=== PATIENT | female | born 1990 | race Caucasian/White ===

== ENCOUNTER 2017-04-14 14:53 | Emergency (ER) | payer MEDICAID, OTHER ==
[~2017-04-14] VITALS: Ht 160 cm; Wt 61.2 kg
[~2017-04-14 14:53] MED LIST: ADVI200T PO; TRAZ50TA4 PO; ZOLO50TA PO; no home meds
[2017-04-14] MEDS ORDERED: NS 1,000 ML IV ONE (16:00)
[2017-04-14 16:20] LABS: BASO % 0.3 % (0.0-1.0); EOS # 0.1 K/mm3 (0.0-0.50); EOS % 1.1 % (0.0-3.0); LARGE UNSTAINED CELL # 0.1 K/mm3 (0.0-0.4); LARGE UNSTAINED CELL % 1.1 % (0.0-4.0); LYMPH # 1.2 K/mm3 (1.5-6.5); LYMPH % 18.1 % (24.0-44.0); MEAN CORPUSCULAR HEMOGLOBIN 30.1 pg (27.0-33.0); MEAN CORPUSCULAR HGB CONC 34.5 g/dl (32.0-36.5); MEAN CORPUSCULAR VOLUME 87.4 fl (80.0-96.0); MONO # 0.3 K/mm3 (0.0-0.8); MONO % 4.4 % (0.0-5.0); NEUTROPHILS # 4.8 K/mm3 (1.8-7.7); NEUTROPHILS % 75.1 % (36.0-66.0); PLATELET COUNT, AUTOMATED 213 k/mm3 (150-450); RED CELL DISTRIBUTION WIDTH 13.6 % (11.5-14.5); WHITE BLOOD COUNT 6.4 K/mm3 (4.0-10.0)
--- NOTE | 2017-04-14 17:01 | REP ---
Clinical: Dating and viability. Technique: Transabdominal obstetrical ultrasound with color Doppler evaluation. Findings: Single live early intrauterine is appreciated. Gestational sac with pole identified. Gracey-rump length of 5.1 cm corresponds to 11 weeks 6 days gestational age with estimated date of delivery 10/28/2017 . heart rate equals 175 beats per minute. No gross abnormalities are identified. Impression: Single live early intrauterine at 11 weeks 6 days gestational age. Complete anatomical assessment should be performed and 19-20 weeks. Signed by Pranav Aiken MD 04/14/2017 04:53 P
[2017-04-14 17:04] LABS: ANION GAP 9 MEQ/L (8-16); BLOOD UREA NITROGEN 14 MG/DL (7-18); CALCIUM LEVEL 8.7 MG/DL (8.5-10.1); CARBON DIOXIDE LEVEL 25 MEQ/L (21-32); CHLORIDE LEVEL 102 MEQ/L (98-107); GLOMERULAR FILTRATION RATE > 60.0 (>60); GLUCOSE, FASTING 71 MG/DL (70-105); HCG, SERUM QUANTITATIVE 69816 MIU/ML; POTASSIUM SERUM 3.7 MEQ/L (3.5-5.1); SODIUM LEVEL 136 MEQ/L (136-145)
[2017-04-14 17:30] VITALS: BP 126/70
== END 2017-04-14 17:30 | disposition home or self-care (01) ==
LOC: M ED 16:30
DX: R10.2 Pelvic and perineal pain (principal); O99.341 Other mental disorders complicating pregnancy, first trimester; F32.9 Major depressive disorder, single episode, unspecified; Z87.59 Personal history of other complications of pregnancy, childbirth and the puerperium; Z3A.11 11 weeks gestation of pregnancy

== ENCOUNTER → 2022-11-14 | Outpatient (CLI) | payer OTHER ==
[~2022-11-14] MED LIST changes: +TRAZ-252 PO; -TRAZ50TA4 PO
[2022-11-14 14:46] LABS: HEMATOCRIT 42.2 % (36.0-47.0); HEMOGLOBIN 14.3 g/dl (12.0-15.5); MEAN CORPUSCULAR HEMOGLOBIN 31.2 pg (27.0-33.0); MEAN CORPUSCULAR HGB CONC 33.9 g/dl (32.0-36.5); MEAN CORPUSCULAR VOLUME 91.9 fl (80.0-96.0); PLATELET COUNT, AUTOMATED 258 10^3/uL (150-450); RED BLOOD COUNT 4.59 10^6/uL (4.00-5.40); WHITE BLOOD COUNT 11.7 10^3/uL (4.0-10.0)
[2022-11-14 15:40] LABS: HIV 1&2 SCREEN CENTAUR NEGATIVE (NEGATIVE)
[2022-11-14 15:48] LABS: HEPATITIS C VIRUS ABY INDEX 0.1 INDEX (<0.8)
[2022-11-14 16:02] LABS: GC DNA AMPLIFICATION NEGATIVE (NEGATIVE)
== END ==
LOC: M PLALAB 11:30
PROVIDERS: ATTEND Specialist
DX: Z34.81 Encounter for supervision of other normal pregnancy, first trimester (principal)

== ENCOUNTER → 2023-01-15 | Outpatient (CLI) | payer OTHER | LOC: M WHC 08:49 | PROVIDERS: ATTEND Obstetrics & Gynecology | DX: Z34.92 Encounter for supervision of normal pregnancy, unspecified, second trimester (principal); Z36.89 Encounter for other specified antenatal screening; Z3A.19 19 weeks gestation of pregnancy ==

== ENCOUNTER → 2023-04-17 | Outpatient (CLI) | payer OTHER ==
[2023-04-17 15:05] LABS: HEMATOCRIT 36.4 % (36.0-47.0); HEMOGLOBIN 12.1 g/dl (12.0-15.5); MEAN CORPUSCULAR HEMOGLOBIN 31.8 pg (27.0-33.0); MEAN CORPUSCULAR HGB CONC 33.2 g/dl (32.0-36.5); MEAN CORPUSCULAR VOLUME 95.5 fl (80.0-96.0); PLATELET COUNT, AUTOMATED 182 10^3/uL (150-450); RED BLOOD COUNT 3.81 10^6/uL (4.00-5.40); WHITE BLOOD COUNT 11.3 10^3/uL (4.0-10.0)
[2023-04-17 16:32] LABS: GC DNA AMPLIFICATION NEGATIVE (NEGATIVE)
== END ==
LOC: M PLALAB 10:31
PROVIDERS: ATTEND Specialist
DX: Z34.82 Encounter for supervision of other normal pregnancy, second trimester (principal); Z36.89 Encounter for other specified antenatal screening; Z3A.00 Weeks of gestation of pregnancy not specified

== ENCOUNTER → 2023-05-08 | Outpatient (REF) | payer OTHER | LOC: M SFHCWAGY 17:51 | PROVIDERS: ATTEND Advanced Practice Midwife | DX: Z34.93 Encounter for supervision of normal pregnancy, unspecified, third trimester (principal) ==

== ENCOUNTER 2023-06-01 07:17 | Inpatient (IN) | payer OTHER ==
[2023-06-01] VITALS (10 sets, daily range): BP systolic 105–134; BP diastolic 57–86; TEMP 97.7; O2SAT 96–100
[~2023-06-01] VITALS: Ht 162.6 cm; Wt 78.4 kg
[2023-06-01] MEDS ORDERED: HOME MED LIST COMPLETE! XX SCH (07:35)
[2023-06-01 08:21] LABS: HEMATOCRIT 35.2 % (36.0-47.0); HEMOGLOBIN 11.9 g/dl (12.0-15.5); MEAN CORPUSCULAR HEMOGLOBIN 30.7 pg (27.0-33.0); MEAN CORPUSCULAR HGB CONC 33.8 g/dl (32.0-36.5); PLATELET COUNT, AUTOMATED 218 10^3/uL (150-450); RED BLOOD COUNT 3.87 10^6/uL (4.00-5.40); WHITE BLOOD COUNT 11.3 10^3/uL (4.0-10.0)
[2023-06-01] MEDS ORDERED: LR 1,000 ML IV ONE (08:25)
[2023-06-01] MEDS: DOCUSATE SODIUM 100MG CAPSULE PO SCH ×2 (09:00→20:43)
[2023-06-01] MEDS: PRENATAL VITAMINS CHEWABLE TABLET PO SCH (09:00)
[2023-06-01] MEDS ORDERED: BICITRA 30ML SOLN UDC PO ONE (09:40)
[2023-06-01] MEDS ORDERED: OXYTOCIN DRIP 30 UNITS in IV 1 EA IV PRN (09:40)
[2023-06-01] MEDS ORDERED: METHYLERGONOVINE MALEATE 0.2MG/ML 1ML VIAL IM PRN (09:40)
[2023-06-01] MEDS ORDERED: CARBOPROST TROMETHAMINE 250 MCG/ML AMP IM PRN (09:40)
[2023-06-01] MEDS ORDERED: TRANEXAMIC ACID INJection 1,000 MG in NS 100 ML IV PRN (09:40)
[2023-06-01] MEDS ORDERED: ceFAZolin SOD 2 GM in IV 1 EA IV ONE (09:40)
[2023-06-01] MEDS ORDERED: OXYTOCIN 30UNITS IN 0.9% NaCl 500ML IV BAG As Ordered ONE ×2 (10:27→12:19)
[2023-06-01] MEDS ORDERED: ONDANSETRON 4MG 2ML VIAL As Ordered ONE (10:33)
[2023-06-01] MEDS ORDERED: METOCLOPRAMIDE INJ 10MG/2ML VIAL As Ordered ONE (10:33)
[2023-06-01] MEDS ORDERED: MORPHINE PRES-FREE INJ 10 MG/10 ML VIAL As Ordered ONE (10:33)
[2023-06-01] MEDS ORDERED: KETOROLAC 60MG 2ML VIAL As Ordered ONE (10:35)
[2023-06-01] MEDS ORDERED: ACETAMINOPHEN 1000MG 100ML IV BAG As Ordered ONE (10:37)
[2023-06-01] MEDS ORDERED: ePHEDrine SULFATE 25 MG/5 ML(5MG/ML) SYRINGE As Ordered ONE (11:27)
[2023-06-01] MEDS ORDERED: ACETAMINOPHEN 500 MG TAB PO PRN (12:10)
[2023-06-01] MEDS ORDERED: OXYTOCIN DRIP 30 UNITS in IV 1 EA IV SCH (12:10)
[2023-06-01] MEDS ORDERED: ANUSOL HC CREAM 30GM TOP PRN (12:10)
[2023-06-01] MEDS ORDERED: ONDANSETRON 4MG 2ML VIAL IV PRN ×2 (12:10→12:45)
[2023-06-01] MEDS ORDERED: SIMETHICONE 80MG CHEW TAB PO PRN (12:10)
[2023-06-01] MEDS: LR 1,000 ML IV SCH ×2 (12:10→20:10)
[2023-06-01] MEDS ORDERED: PERCOCET 5MG/325MG TAB PO PRN (12:10)
[2023-06-01] MEDS ORDERED: MORPHINE 4 MG/ML 1ML VIAL IV PRN (12:10)
[2023-06-01] MEDS ORDERED: RHOGAM 300MCG (1500IU) INJ IM SCH (12:10)
[2023-06-01] MEDS ORDERED: COLA100C5 PO (12:17)
[2023-06-01] MEDS ORDERED: PERCOCET PO (12:17)
[2023-06-01] MEDS ORDERED: IBUP80TA PO (12:17)
[2023-06-01] MEDS ORDERED: HYDROMORPHONE HCL 0.5 MG/ 0.5 ML SYRINGE IV PRN (12:45)
[2023-06-01] MEDS ORDERED: METOCLOPRAMIDE INJ 10MG/2ML VIAL IV PRN (12:45)
[2023-06-01] MEDS ORDERED: **NOTE PATIENT COMMENT** MISC XX SCH (12:45)
[2023-06-01] MEDS ORDERED: NALOXONE INJ 0.4MG/1ML VIAL IV PRN ×2 (12:45)
[2023-06-01] MEDS ORDERED: fentaNYL 100 MCG/2 ML INJECTION IV PRN (12:45)
[2023-06-01] MEDS ORDERED: oxyCODONE 5MG TAB PO PRN (12:45)
[2023-06-01] MEDS: SLF 3 ML SYR IV SCH (12:45)
[2023-06-01] MEDS ORDERED: MEPERIDINE 25 MG/ML 1ML VIAL IV PRN (12:45)
[2023-06-01] MEDS ORDERED: diphenhydrAMINE 50MG/ML VIAL IV PRN (12:45)
[2023-06-01] MEDS: KETOROLAC 30 MG/ML 1ML VIAL IV SCH (18:31)
[2023-06-02] MEDS: KETOROLAC 30 MG/ML 1ML VIAL IV SCH ×2 (00:18→05:36)
[2023-06-02] MEDS: SLF 3 ML SYR IV SCH ×2 (00:18→05:37)
[2023-06-02 02:00] VITALS: BP 112/57; O2SAT 98
[2023-06-02] MEDS: LR 1,000 ML IV SCH ×2 (04:10→12:10)
[2023-06-02 06:00] VITALS: BP 102/66; O2SAT 99
[2023-06-02 07:23] LABS: HEMATOCRIT 30.4 % (36.0-47.0); HEMOGLOBIN 10.1 g/dl (12.0-15.5); MEAN CORPUSCULAR HEMOGLOBIN 31.1 pg (27.0-33.0); MEAN CORPUSCULAR HGB CONC 33.2 g/dl (32.0-36.5); MEAN CORPUSCULAR VOLUME 93.5 fl (80.0-96.0); PLATELET COUNT, AUTOMATED 177 10^3/uL (150-450); RED BLOOD COUNT 3.25 10^6/uL (4.00-5.40); WHITE BLOOD COUNT 11.6 10^3/uL (4.0-10.0)
[2023-06-02] MEDS: PRENATAL VITAMINS CHEWABLE TABLET PO SCH (08:05)
[2023-06-02] MEDS: DOCUSATE SODIUM 100MG CAPSULE PO SCH ×2 (08:06→21:16)
[2023-06-02 10:00] VITALS: BP 119/72; O2SAT 100
[2023-06-02] MEDS: IBUPROFEN 800 MG TAB PO SCH ×2 (13:14→22:43)
[2023-06-02] MEDS: PERCOCET 5MG/325MG TAB PO PRN ×2 (15:32→21:16)
[2023-06-02 18:00] VITALS: BP 150/69; O2SAT 97
[2023-06-02 22:00] VITALS: BP 115/64; O2SAT 99
[2023-06-03 02:00] VITALS: BP 121/65; O2SAT 100
[2023-06-03] MEDS: IBUPROFEN 800 MG TAB PO SCH (05:55)
[2023-06-03 06:00] VITALS: BP 120/62; O2SAT 99
[2023-06-03] MEDS: PRENATAL VITAMINS CHEWABLE TABLET PO SCH (07:40)
[2023-06-03] MEDS: DOCUSATE SODIUM 100MG CAPSULE PO SCH (07:41)
[2023-06-03] MEDS ORDERED: MEASLES,MUMPS,RUBELLA VACCINE INJ (MMR-II) SC.IMMUN ONE (09:00)
== END 2023-06-03 13:45 | disposition home or self-care (01) | DRG 540 ==
LOC: M LDI 07:17 → M OBS 13:30
PROVIDERS: ADMIT Specialist; ATTEND Specialist
PROC: 10D00Z1 Extraction of Products of Conception, Low, Open Approach (ICD-10-PCS; principal; 2023-06-01 09:30)
DX: O34.211 Maternal care for low transverse scar from previous cesarean delivery (principal); O32.1XX0 Maternal care for breech presentation, not applicable or unspecified; Z37.0 Single live birth; Z3A.39 39 weeks gestation of pregnancy

== ENCOUNTER → 2024-09-03 | Outpatient (CLI) | payer OTHER ==
[~2024-09-03] MED LIST changes: +COLA100C5 PO; +IBUP80TA PO; +PERCOCET PO
[2024-09-03 15:19] LABS: HEMATOCRIT 33.9 % (36.0-47.0); HEMOGLOBIN 10.9 g/dl (12.0-15.5); MEAN CORPUSCULAR HEMOGLOBIN 28.8 pg (27.0-33.0); MEAN CORPUSCULAR HGB CONC 32.2 g/dl (32.0-36.5); MEAN CORPUSCULAR VOLUME 89.7 fl (80.0-96.0); PLATELET COUNT, AUTOMATED 231 10^3/uL (150-450); RED BLOOD COUNT 3.78 10^6/uL (4.00-5.40); WHITE BLOOD COUNT 13.5 10^3/uL (4.0-10.0)
[2024-09-03 16:22] LABS: HIV 1&2 SCREEN NEGATIVE (NEGATIVE)
[2024-09-03 16:29] LABS: HEPATITIS C VIRUS ABY INDEX 0.09 INDEX (<0.8)
[2024-09-03 21:23] LABS: GC DNA AMPLIFICATION NEGATIVE (NEGATIVE)
== END ==
LOC: M PLALAB 13:20
PROVIDERS: ATTEND Nurse Practitioner Women's Health
DX: Z34.82 Encounter for supervision of other normal pregnancy, second trimester (principal)

== ENCOUNTER → 2024-09-17 | Outpatient (REF) | payer OTHER ==
[~2024-09-17] MED LIST changes: +OXYC1TAB23 PO; +SIME1CAP4 PO
== END ==
LOC: M PLALAB 15:21
PROVIDERS: ATTEND Specialist
DX: Z34.93 Encounter for supervision of normal pregnancy, unspecified, third trimester (principal); Z3A.36 36 weeks gestation of pregnancy